=== PATIENT | female | born 1955 ===

== ENCOUNTER 2018-02-02 09:35 | Emergency (ER) | payer OTHER ==
[~2018-02-02] VITALS: Ht 165.1 cm; Wt 90.7 kg
[2018-02-02] MEDS ORDERED: CLONAZEPAM2 MG PO (09:41)
[2018-02-02] MEDS ORDERED: SYNTHROID150 MCG PO (09:41)
[2018-02-02] MEDS ORDERED: RISPERDAL2 MG PO (09:41)
== END 2018-02-02 15:36 | disposition home or self-care (01) ==
LOC: ER 09:35
DX: E11.65 Type 2 diabetes mellitus with hyperglycemia (principal)